=== PATIENT | male | born 1960 | race Caucasian/White ===

== ENCOUNTER 2022-03-05 12:21 | Inpatient (IN) ==
[2022-03-05] MEDS: *HR* LORazepam 1 MG TABLET PO ONE ×2 (12:44→12:48)
[2022-03-05 13:08] LABS: Bilirubin,Urine Negative (Negative); Blood,Urine Large (Negative); Clarity,Urine Clear (Clear); Color,Urine Colorless (Yellow); Glucose,Urine (UA) Normal (Normal); Ketones,Urine Negative (Negative); Leukocyte Esterase,Urine Negative (Negative); Nitrite,Urine Negative (Negative); PH,Urine 6.5 pH Units (5.0-8.0); Protein,Urine Negative (Neg-Trace); Specific Gravity,Urine 1.009 (1.010-1.025); Urobilinogen,Urine Normal (Normal); WBC,Urine 0-3 per hpf (0-3)
[2022-03-05 13:14] LABS: Amphetamine Screen,Urine Negative ng/mL (Cutoff=1000); Barbiturate Screen,Urine Negative ng/mL (Cutoff=200); Benzodiazepines Screen,Urine Negative ng/mL (Cutoff=200); Cannabinoid Screen,Urine Negative ng/mL (Cutoff = 50); Cocaine Screen,Urine Negative ng/mL (Cutoff= 300); Opiate Screen,Urine Negative ng/mL (Cutoff=300); Phencyclidine Screen,Urine Negative ng/mL (Cutoff=25)
[2022-03-05] MEDS ORDERED: *HR* LORazepam 0.5 MG TABLET PO ONE (17:50)
[2022-03-05] MEDS ORDERED: *HR* LORazepam 0.5 MG TABLET ONE (17:55)
[2022-03-05 18:11] LABS: Influenza A PCR Negative (Negative); Influenza B PCR Negative (Negative); Resp. Syncytial Virus PCR Negative (Negative)
[2022-03-05 19:39] LABS: SARS-CoV-2 by PCR (In House) Negative (Negative)
[2022-03-05] MEDS ORDERED: clonazePAM 1 MG TABLET PO PRN (19:46)
[2022-03-05] MEDS ORDERED: *HR* LORazepam 2 MG/ML VIAL IM PRN (19:51)
[2022-03-05] MEDS ORDERED: *HR* LORazepam 1 MG TABLET PO PRN (19:51)
[2022-03-05] MEDS ORDERED: Haloperidol Lactate 5 MG/ML VIAL IM PRN (19:51)
[2022-03-05] MEDS ORDERED: haloperidoL 5 MG TABLET PO PRN (19:51)
[2022-03-05] MEDS ORDERED: Acetaminophen 325 MG TABLET PO PRN (19:51)
[2022-03-05] MEDS ORDERED: clonazePAM 1 MG TABLET ONE (20:04)
[2022-03-05] MEDS: clonazePAM 1 MG TABLET PO SCH (20:07)
[2022-03-05] MEDS: QUEtiapine Fumarate 25 MG TABLET PO PRN (21:32)
[2022-03-05] MEDS: hydrOXYzine pamoate 25 MG CAPSULE PO PRN (21:32)
[2022-03-05] MEDS ORDERED: MOM Conc 10 ML UD.LIQ PO PRN (22:02)
[2022-03-06] MEDS: clonazePAM 1 MG TABLET PO SCH ×4 (08:56→20:06)
[2022-03-06] MEDS: Loratadine 10 MG TABLET PO SCH (08:56)
[2022-03-06] MEDS: Cholecalciferol (D-3) 1,000 UNIT (25MCG) TABLET PO SCH (08:56)
[2022-03-06] MEDS ORDERED: ARIPiprazole 400 MG SUSER.SYR IM SCH (12:00)
[2022-03-06] MEDS: Fluticasone Propionate Nasal 50 MCG/SPRAY BOTTLE NS SCH (12:27)
[2022-03-06] MEDS: QUEtiapine Fumarate 25 MG TABLET PO PRN (20:06)
[2022-03-06] MEDS: hydrOXYzine pamoate 25 MG CAPSULE PO PRN (20:06)
[2022-03-07] MEDS: clonazePAM 1 MG TABLET PO SCH ×3 (08:21→19:54)
[2022-03-07] MEDS: Cholecalciferol (D-3) 1,000 UNIT (25MCG) TABLET PO SCH (08:21)
[2022-03-07] MEDS: Fluticasone Propionate Nasal 50 MCG/SPRAY BOTTLE NS SCH (08:21)
[2022-03-07] MEDS: Loratadine 10 MG TABLET PO SCH (08:21)
[2022-03-07] MEDS: OLANZapine 10 MG TAB.RAPDIS PO SCH (19:54)
[2022-03-08] MEDS: Loratadine 10 MG TABLET PO SCH (08:37)
[2022-03-08] MEDS: clonazePAM 1 MG TABLET PO SCH ×3 (08:37→21:16)
[2022-03-08] MEDS: Cholecalciferol (D-3) 1,000 UNIT (25MCG) TABLET PO SCH (08:37)
[2022-03-08] MEDS: Fluticasone Propionate Nasal 50 MCG/SPRAY BOTTLE NS SCH (08:38)
[2022-03-08 20:06] LABS: Bilirubin,Urine Negative (Negative); Blood,Urine Large (Negative); Clarity,Urine Clear (Clear); Color,Urine Light-Yellow (Yellow); Glucose,Urine (UA) Normal (Normal); Ketones,Urine Negative (Negative); Leukocyte Esterase,Urine Negative (Negative); Nitrite,Urine Negative (Negative); PH,Urine 5.5 pH Units (5.0-8.0); Protein,Urine Negative (Neg-Trace); Specific Gravity,Urine 1.008 (1.010-1.025); Urobilinogen,Urine Normal (Normal)
[2022-03-08] MEDS: OLANZapine 10 MG TAB.RAPDIS PO SCH (21:16)
[2022-03-08] MEDS: QUEtiapine Fumarate 25 MG TABLET PO PRN (21:16)
[2022-03-08] MEDS: hydrOXYzine pamoate 25 MG CAPSULE PO PRN (21:17)
[2022-03-09] MEDS: clonazePAM 1 MG TABLET PO SCH ×3 (09:31→20:45)
[2022-03-09] MEDS: Loratadine 10 MG TABLET PO SCH (09:31)
[2022-03-09] MEDS: Fluticasone Propionate Nasal 50 MCG/SPRAY BOTTLE NS SCH (09:32)
[2022-03-09] MEDS: Cholecalciferol (D-3) 1,000 UNIT (25MCG) TABLET PO SCH (09:32)
[2022-03-09] MEDS: Mag Hydrox/Al Hydrox/Simeth 30 ML UDC PO PRN (20:43)
[2022-03-09] MEDS: OLANZapine 5 MG TAB.RAPDIS PO SCH (20:44)
[2022-03-09] MEDS: hydrOXYzine pamoate 25 MG CAPSULE PO PRN (20:44)
[2022-03-09] MEDS: OLANZapine 10 MG TAB.RAPDIS PO SCH (20:44)
[2022-03-09] MEDS: QUEtiapine Fumarate 25 MG TABLET PO PRN (20:45)
[2022-03-10] MEDS: Cholecalciferol (D-3) 1,000 UNIT (25MCG) TABLET PO SCH (09:41)
[2022-03-10] MEDS: Loratadine 10 MG TABLET PO SCH (09:41)
[2022-03-10] MEDS: clonazePAM 1 MG TABLET PO SCH ×3 (09:41→20:02)
[2022-03-10] MEDS: Fluticasone Propionate Nasal 50 MCG/SPRAY BOTTLE NS SCH (12:59)
[2022-03-10] MEDS: OLANZapine 5 MG TAB.RAPDIS PO SCH (20:02)
[2022-03-10] MEDS: OLANZapine 10 MG TAB.RAPDIS PO SCH (20:02)
[2022-03-10] MEDS: QUEtiapine Fumarate 25 MG TABLET PO PRN (20:02)
[2022-03-10] MEDS: hydrOXYzine pamoate 25 MG CAPSULE PO PRN (20:02)
[2022-03-10] MEDS: Mag Hydrox/Al Hydrox/Simeth 30 ML UDC PO PRN (20:02)
[2022-03-11] MEDS: Loratadine 10 MG TABLET PO SCH (09:24)
[2022-03-11] MEDS: Cholecalciferol (D-3) 1,000 UNIT (25MCG) TABLET PO SCH (09:24)
[2022-03-11] MEDS: Fluticasone Propionate Nasal 50 MCG/SPRAY BOTTLE NS SCH (09:25)
[2022-03-11] MEDS: clonazePAM 1 MG TABLET PO SCH ×3 (09:25→20:48)
[2022-03-11] MEDS: Mag Hydrox/Al Hydrox/Simeth 30 ML UDC PO PRN (20:42)
[2022-03-11] MEDS: OLANZapine 10 MG TAB.RAPDIS PO SCH (20:43)
[2022-03-11] MEDS: QUEtiapine Fumarate 25 MG TABLET PO PRN (20:44)
[2022-03-11] MEDS: hydrOXYzine pamoate 25 MG CAPSULE PO PRN (20:45)
[2022-03-12] MEDS: Cholecalciferol (D-3) 1,000 UNIT (25MCG) TABLET PO SCH (09:20)
[2022-03-12] MEDS: Loratadine 10 MG TABLET PO SCH (09:20)
[2022-03-12] MEDS: clonazePAM 1 MG TABLET PO SCH ×3 (09:21→20:51)
[2022-03-12] MEDS: Fluticasone Propionate Nasal 50 MCG/SPRAY BOTTLE NS SCH (09:23)
[2022-03-12] MEDS: OLANZapine 10 MG TAB.RAPDIS PO SCH (20:51)
[2022-03-12] MEDS: QUEtiapine Fumarate 25 MG TABLET PO PRN (20:53)
[2022-03-12] MEDS: hydrOXYzine pamoate 25 MG CAPSULE PO PRN (20:53)
[2022-03-13] MEDS: Cholecalciferol (D-3) 1,000 UNIT (25MCG) TABLET PO SCH (08:46)
[2022-03-13] MEDS: Loratadine 10 MG TABLET PO SCH (08:46)
[2022-03-13] MEDS: clonazePAM 1 MG TABLET PO SCH ×3 (08:47→21:05)
[2022-03-13] MEDS: Fluticasone Propionate Nasal 50 MCG/SPRAY BOTTLE NS SCH (08:48)
[2022-03-13] MEDS: hydrOXYzine pamoate 25 MG CAPSULE PO PRN (21:04)
[2022-03-13] MEDS: QUEtiapine Fumarate 25 MG TABLET PO PRN (21:04)
[2022-03-13] MEDS: OLANZapine 10 MG TAB.RAPDIS PO SCH (21:05)
[2022-03-14] MEDS: clonazePAM 1 MG TABLET PO SCH ×3 (08:46→20:16)
[2022-03-14] MEDS: Loratadine 10 MG TABLET PO SCH (08:46)
[2022-03-14] MEDS: Cholecalciferol (D-3) 1,000 UNIT (25MCG) TABLET PO SCH (08:46)
[2022-03-14] MEDS: Fluticasone Propionate Nasal 50 MCG/SPRAY BOTTLE NS SCH (10:37)
[2022-03-14] MEDS: OLANZapine 10 MG TAB.RAPDIS PO SCH (20:16)
[2022-03-15] MEDS: Fluticasone Propionate Nasal 50 MCG/SPRAY BOTTLE NS SCH (08:42)
[2022-03-15] MEDS: Cholecalciferol (D-3) 1,000 UNIT (25MCG) TABLET PO SCH (08:42)
[2022-03-15] MEDS: Loratadine 10 MG TABLET PO SCH (08:42)
[2022-03-15] MEDS: clonazePAM 1 MG TABLET PO SCH (08:42)
[2022-03-15 09:56] VITALS: BP 117/76; PULSE 109; TEMP 98; O2SAT 95
== END 2022-03-15 13:10 | disposition home or self-care (01) | DRG 885 ==
LOC: EMEROOARM 12:21 → 1ANU 19:45
PROVIDERS: ADMIT Psychiatry & Neurology Psychiatry; ATTEND Psychiatry & Neurology Psychiatry

== ENCOUNTER 2022-04-24 18:38 | Observation (INO) ==
[2022-04-24] MEDS ORDERED: clonazePAM 1 MG TABLET PO ONE (20:30)
[2022-04-24] MEDS ORDERED: OLANZapine 10 MG TAB.RAPDIS PO ONE (20:32)
[2022-04-24 23:02] LABS: Influenza A PCR Negative (Negative); Influenza B PCR Negative (Negative); Resp. Syncytial Virus PCR Negative (Negative)
[2022-04-24 23:04] LABS: SARS-CoV-2 by PCR (In House) Positive (Negative)
[2022-04-24] MEDS ORDERED: Ondansetron ODT 4 MG TAB.RAPDIS SL PRN (23:51)
[2022-04-24] MEDS ORDERED: Naloxone 0.4 MG/ML INJ IVP PRN (23:51)
[2022-04-24] MEDS ORDERED: Melatonin 3 MG TABLET PO PRN (23:51)
[2022-04-25] MEDS: clonazePAM 1 MG TABLET PO SCH ×4 (01:46→20:07)
[2022-04-25] MEDS: *HR* Enoxaparin 40 MG/0.4 ML SYRINGE SQ SCH (06:08)
[2022-04-25] MEDS: Loratadine 10 MG TABLET PO SCH (10:08)
[2022-04-25 12:06] LABS: Red Blood Count 4.37 M/mcL (4.19-5.50); Red Cell Distribution Width 14.7 % (11.5-14.5)
[2022-04-25 12:08] LABS: Hematocrit 39.6 % (37.5-50.1); Hemoglobin 13.5 g/dL (12.9-16.9); Immature Platelets 3.7 % (1.1-6.1); Mean Corpuscular HGB Conc 34.1 g/dL (31.6-35.5); Mean Corpuscular Hemoglobin 30.9 pg (28.0-33.3); Mean Corpuscular Volume 90.6 fL (83.0-100.0); Mean Platelet Volume 9.9 fL (9.4-12.4); White Blood Count 4.1 K/mcL (4.3-11.1)
[2022-04-25 12:27] LABS: Calcium 9.8 mg/dL (8.6-10.3); Magnesium 1.9 mg/dL (1.6-2.6); Phosphorous 3.8 mg/dL (2.7-4.5)
[2022-04-25] MEDS ORDERED: ARIPiprazole 400 MG SUSER.SYR IM SCH (15:00)
[2022-04-25] MEDS: ARIPiprazole 10 MG TABLET PO SCH (16:02)
[2022-04-25] MEDS: OLANZapine 10 MG TAB.RAPDIS PO SCH (20:07)
[2022-04-26] MEDS: *HR* Enoxaparin 40 MG/0.4 ML SYRINGE SQ SCH (06:03)
[2022-04-26] MEDS: Loratadine 10 MG TABLET PO SCH (07:53)
[2022-04-26] MEDS: ARIPiprazole 10 MG TABLET PO SCH (07:53)
[2022-04-26] MEDS: clonazePAM 1 MG TABLET PO SCH ×3 (07:54→19:43)
[2022-04-26] MEDS: OLANZapine 10 MG TAB.RAPDIS PO SCH (19:43)
[2022-04-27] MEDS: *HR* Enoxaparin 40 MG/0.4 ML SYRINGE SQ SCH (05:13)
[2022-04-27] MEDS: clonazePAM 1 MG TABLET PO SCH ×3 (08:17→21:49)
[2022-04-27] MEDS: ARIPiprazole 10 MG TABLET PO SCH (08:18)
[2022-04-27] MEDS: Loratadine 10 MG TABLET PO SCH (08:18)
[2022-04-27 10:22] LABS: Basophils % 0.2 %; Eosinophils % 0.2 %; Immature Granulocytes % 0.2 % (0-4); Red Cell Distribution Width 14.6 % (11.5-14.5)
[2022-04-27 10:23] LABS: Hematocrit 38.1 % (37.5-50.1); Hemoglobin 12.8 g/dL (12.9-16.9); Immature Platelets 3.6 % (1.1-6.1); Lymphocytes # 0.9 K/mcL (0.6-4.6); Lymphocytes % 21.4 %; Mean Corpuscular HGB Conc 33.6 g/dL (31.6-35.5); Mean Corpuscular Hemoglobin 30.5 pg (28.0-33.3); Mean Corpuscular Volume 90.9 fL (83.0-100.0); Mean Platelet Volume 10.9 fL (9.4-12.4); Monocytes # 0.3 K/mcL (0.0-1.3); Monocytes % 7.3 %; Neutrophils # 2.9 K/mcL (1.6-8.9); Red Blood Count 4.19 M/mcL (4.19-5.50); Segmented Neutrophils % 70.7 %; White Blood Count 4.1 K/mcL (4.3-11.1)
[2022-04-27 10:24] LABS: Platelet Count 78 K/mcL (140-400)
[2022-04-27 10:44] LABS: Albumin/Globulin Ratio 1.5 (1.1-2.2); Bilirubin,Total 0.7 mg/dL (0.3-1.0); Calcium 9.5 mg/dL (8.6-10.3); Globulin 2.6 g/dL (2.4-3.5); Total Protein 6.6 g/dL (6.4-8.9)
[2022-04-27] MEDS: OLANZapine 10 MG TAB.RAPDIS PO SCH (21:49)
[2022-04-28] MEDS: *HR* Enoxaparin 40 MG/0.4 ML SYRINGE SQ SCH (05:29)
[2022-04-28] MEDS: Loratadine 10 MG TABLET PO SCH (08:40)
[2022-04-28] MEDS: ARIPiprazole 10 MG TABLET PO SCH (08:41)
[2022-04-28] MEDS: clonazePAM 1 MG TABLET PO SCH ×3 (08:41→21:32)
[2022-04-28] MEDS: OLANZapine 10 MG TAB.RAPDIS PO SCH (21:32)
[2022-04-29] MEDS: *HR* Enoxaparin 40 MG/0.4 ML SYRINGE SQ SCH (05:31)
[2022-04-29] MEDS: Loratadine 10 MG TABLET PO SCH (08:27)
[2022-04-29] MEDS: ARIPiprazole 10 MG TABLET PO SCH (08:28)
[2022-04-29] MEDS: clonazePAM 1 MG TABLET PO SCH ×3 (08:28→19:14)
[2022-04-29] MEDS: OLANZapine 10 MG TAB.RAPDIS PO SCH (19:15)
[2022-04-30] MEDS ORDERED: *HR* LORazepam 2 MG/ML VIAL IM STA (01:22)
[2022-04-30] MEDS ORDERED: Dexmedetomidine HCl 400 MCG/100 ML MLS IVC SCH (02:30)
[2022-04-30] MEDS ORDERED: Haloperidol Lactate 5 MG/ML VIAL IM ONE (02:32)
[2022-04-30] MEDS ORDERED: *HR* LORazepam 2 MG/ML VIAL IM ONE (02:37)
[2022-04-30] MEDS: *HR* Enoxaparin 40 MG/0.4 ML SYRINGE SQ SCH (06:53)
[2022-04-30] MEDS ORDERED: 0.9 % Sodium Chloride 1,000 ML IVC ONE (08:40)
[2022-04-30 11:18] VITALS: TEMP 97.8; O2SAT 93
[2022-04-30] MEDS ORDERED: Artificial Tears SOLN 15 ML BOTTLE BOTH EYES PRN (12:08)
[2022-04-30] MEDS: ARIPiprazole 10 MG TABLET PO SCH (12:19)
[2022-04-30] MEDS: Loratadine 10 MG TABLET PO SCH (12:19)
[2022-04-30] MEDS: clonazePAM 1 MG TABLET PO SCH ×2 (12:19→16:41)
[2022-04-30 16:20] VITALS: BP 114/81; PULSE 71
[2022-04-30 16:28] LABS: Adenovirus Not Detected (Not Detect); Bordetella Pertussis Not Detected (Not Detect); Chlamydophila pneumoniae Not Detected (Not Detect); Coronavirus 229E Not Detected (Not Detect); Coronavirus HKU1 Not Detected (Not Detect); Coronavirus NL63 Not Detected (Not Detect); Coronavirus OC43 Not Detected (Not Detect); Human Metapneumovirus Not Detected (Not Detect); Human Rhinovirus/Enterovirus Not Detected (Not Detect); Influenza A Subtype 2009 H1 Not Detected (Not Detect); Influenza B Not Detected (Not Detect); Mycoplasma pneumoniae Not Detected (Not Detect); Parainfluenza Virus 1 Not Detected (Not Detect); Parainfluenza Virus 2 Not Detected (Not Detect); Parainfluenza Virus 3 Not Detected (Not Detect); Parainfluenza Virus 4 Not Detected (Not Detect); Respiratory Syncytial Virus Not Detected (Not Detect); SARS-CoV-2 Not Detected (Not Detect)
[2022-04-30] MEDS ORDERED: Flu Vac QV 22-23 (6MOS UP)/PF 0.5 ML SYRINGE IM ONE (17:05)
== END 2022-04-30 17:31 ==
LOC: 3BNU 18:38 → EMEROOARM 18:38 → SUATTDRO 04-25 00:05 → 3BNU 04-25 01:04 → 2NNU 04-30 04:51
PROVIDERS: ADMIT Student in an Organized Health Care Education/Training Program; ATTEND Nurse Practitioner

== ENCOUNTER 2022-04-30 17:37 | Inpatient (IN) ==
[2022-04-30] MEDS ORDERED: traZODone 50 MG TABLET PO PRN (17:44)
[2022-04-30] MEDS ORDERED: Haloperidol Lactate 5 MG/ML VIAL IM PRN (17:44)
[2022-04-30] MEDS ORDERED: Mag Hydrox/Al Hydrox/Simeth 30 ML UDC PO PRN (17:44)
[2022-04-30] MEDS ORDERED: Acetaminophen 325 MG TABLET PO PRN (17:44)
[2022-04-30] MEDS ORDERED: *HR* LORazepam 2 MG/ML VIAL IM PRN (17:44)
[2022-04-30] MEDS ORDERED: MOM Conc 10 ML UD.LIQ PO PRN (17:44)
[2022-04-30] MEDS ORDERED: Artificial Tears SOLN 15 ML BOTTLE BOTH EYES PRN (18:01)
[2022-04-30] MEDS ORDERED: Melatonin 3 MG TABLET PO PRN (18:03)
[2022-04-30] MEDS: OLANZapine 10 MG TAB.RAPDIS PO SCH (20:49)
[2022-04-30] MEDS: clonazePAM 1 MG TABLET PO SCH (20:49)
[2022-04-30] MEDS: hydrOXYzine pamoate 25 MG CAPSULE PO PRN (20:49)
[2022-04-30] MEDS: *HR* LORazepam 1 MG TABLET PO PRN (21:58)
[2022-04-30] MEDS: haloperidoL 5 MG TABLET PO PRN (21:58)
[2022-05-01] MEDS: haloperidoL 5 MG TABLET PO PRN ×2 (04:18→21:29)
[2022-05-01] MEDS: *HR* LORazepam 1 MG TABLET PO PRN ×2 (04:18→21:28)
[2022-05-01] MEDS: Loratadine 10 MG TABLET PO SCH (08:04)
[2022-05-01] MEDS: ARIPiprazole 10 MG TABLET PO SCH (08:04)
[2022-05-01] MEDS: OLANZapine 5 MG TAB.RAPDIS PO SCH (08:05)
[2022-05-01] MEDS: clonazePAM 1 MG TABLET PO SCH ×3 (08:05→20:44)
[2022-05-01] MEDS ORDERED: chlorproMAZINE 25 MG TABLET PO PRN (09:18)
[2022-05-01] MEDS ORDERED: Melatonin 3 MG TABLET PO PRN (14:07)
[2022-05-01] MEDS: OLANZapine 10 MG TAB.RAPDIS PO SCH (20:44)
[2022-05-01] MEDS: chlorproMAZINE 25 MG TABLET PO PRN (20:45)
[2022-05-02] MEDS: haloperidoL 5 MG TABLET PO PRN (01:56)
[2022-05-02] MEDS: *HR* LORazepam 1 MG TABLET PO PRN (01:56)
[2022-05-02] MEDS: hydrOXYzine pamoate 25 MG CAPSULE PO PRN (04:18)
[2022-05-02] MEDS: chlorproMAZINE 25 MG TABLET PO PRN (04:18)
[2022-05-02] MEDS: ARIPiprazole 10 MG TABLET PO SCH (08:45)
[2022-05-02] MEDS: OLANZapine 5 MG TAB.RAPDIS PO SCH (08:47)
[2022-05-02] MEDS: clonazePAM 1 MG TABLET PO SCH ×2 (08:47→14:01)
[2022-05-02] MEDS: Loratadine 10 MG TABLET PO SCH (08:47)
[2022-05-02 13:40] VITALS: BP 127/88; PULSE 104; TEMP 97.9; O2SAT 94
[2022-05-03 14:10] LABS: ABG Base Excess 0 mEq/L (-2 to 3); ABG HCO3 27 mEq/L (21-27); ABG Oxygen Saturation 99 % (95-98); ABG PCO2 49 mmHg (35-45); ABG PH 7.35 pH Units (7.32-7.45); ABG PO2 158 mmHg (85-104); ABG TCO2 28 mEq/L (20-26); Blood Gas Modality ASSIST CONTROL; Blood Gas VT 500 cc
[2022-05-04 08:18] LABS: ABG Base Excess 1 mEq/L (-2 to 3); ABG HCO3 28 mEq/L (21-27); ABG Oxygen Saturation 96 % (95-98); ABG PCO2 55 mmHg (35-45); ABG PH 7.31 pH Units (7.32-7.45); ABG PO2 94 mmHg (85-104); ABG TCO2 30 mEq/L (20-26); Blood Gas Modality ASSIST CONTROL; Blood Gas VT 550 cc
[2022-05-25] MEDS ORDERED: Patient Taking Own Medication 1 EACH IM SCH (09:00)
== END 2022-05-02 14:06 | disposition short-term general hospital (02) | DRG 885 ==
LOC: 1ANU 17:37
PROVIDERS: ADMIT Psychiatry & Neurology Psychiatry; ATTEND Psychiatry & Neurology Psychiatry

== ENCOUNTER 2022-05-02 11:58 | Inpatient (IN) ==
[2022-05-02] MEDS: Dexmedetomidine HCl 400 MCG/100 ML MLS IVC SCH ×2 (15:17→20:46)
[2022-05-02] MEDS ORDERED: Naloxone 0.4 MG/ML INJ IVP PRN (15:56)
[2022-05-02] MEDS ORDERED: *HR* LORazepam 1 MG TABLET PO PRN (16:07)
[2022-05-02] MEDS ORDERED: Haloperidol Lactate 5 MG/ML VIAL IM PRN (16:07)
[2022-05-02] MEDS ORDERED: *HR* LORazepam 2 MG/ML VIAL IVP PRN (16:08)
[2022-05-02] MEDS ORDERED: Melatonin 3 MG TABLET PO PRN (16:09)
[2022-05-02] MEDS ORDERED: chlorproMAZINE 25 MG TABLET PO PRN (16:10)
[2022-05-02] MEDS ORDERED: haloperidoL 5 MG TABLET PO PRN (16:11)
[2022-05-02] MEDS ORDERED: *HR* LORazepam 2 MG/ML VIAL IM ONE (16:19)
[2022-05-02] MEDS: Haloperidol Lactate 5 MG/ML VIAL IM PRN (16:32)
[2022-05-02] MEDS: clonazePAM 1 MG TABLET PO SCH (21:55)
[2022-05-02] MEDS: OLANZapine 5 MG TAB.RAPDIS PO SCH (21:55)
[2022-05-03] MEDS: 0.9 % Sodium Chloride 1,000 ML IVC ONE ×2 (00:14→04:02)
[2022-05-03 03:16] LABS: Eosinophils % 0.7 %; Hemoglobin 11.9 g/dL (12.9-16.9); Mean Corpuscular Volume 90.5 fL (83.0-100.0); Red Cell Distribution Width 14.6 % (11.5-14.5)
[2022-05-03 03:18] LABS: Hematocrit 35.2 % (37.5-50.1); Immature Granulocytes % 0.3 % (0-4); Immature Platelets 2.8 % (1.1-6.1); Lymphocytes # 0.7 K/mcL (0.6-4.6); Lymphocytes % 22.6 %; Mean Corpuscular HGB Conc 33.8 g/dL (31.6-35.5); Mean Corpuscular Hemoglobin 30.6 pg (28.0-33.3); Mean Platelet Volume 10.6 fL (9.4-12.4); Monocytes # 0.3 K/mcL (0.0-1.3); Monocytes % 11.4 %; Red Blood Count 3.89 M/mcL (4.19-5.50)
[2022-05-03 03:29] LABS: Platelet Count 72 K/mcL (140-400)
[2022-05-03 03:38] LABS: Calcium 9.4 mg/dL (8.6-10.3); Magnesium 2.2 mg/dL (1.6-2.6); Potassium 4.1 mEq/L (3.5-5.1)
[2022-05-03] MEDS ORDERED: 0.9 % Sodium Chloride 1,000 ML ONE (03:55)
[2022-05-03] MEDS: Haloperidol Lactate 5 MG/ML VIAL IM PRN (07:29)
[2022-05-03] MEDS: ARIPiprazole 10 MG TABLET PO SCH (10:32)
[2022-05-03] MEDS: clonazePAM 1 MG TABLET PO SCH ×3 (10:32→19:19)
[2022-05-03] MEDS: OLANZapine 5 MG TAB.RAPDIS PO SCH ×2 (10:32→19:19)
[2022-05-03] MEDS: 0.9 % Sodium Chloride 1,000 ML IVC SCH (10:53)
[2022-05-03] MEDS ORDERED: Artificial Tears SOLN 15 ML BOTTLE BOTH EYES PRN (12:47)
[2022-05-03] MEDS: FentaNYL (PF) 1,000 MCG/100 ML IV.SOLN IVC SCH ×2 (13:30→19:13)
[2022-05-03] MEDS: Midazolam HCl 50 MG/50 ML IV.SOLN IVC SCH ×3 (13:30→22:11)
[2022-05-03] MEDS: Pantoprazole 40 MG VIAL IVP SCH (15:47)
[2022-05-03] MEDS: Artificial Tears SOLN 15 ML BOTTLE BOTH EYES SCH ×3 (15:48→22:57)
[2022-05-03] MEDS ORDERED: *HR* Atropine Sulfate 1 MG/10 ML SYRINGE ONE (15:52)
[2022-05-03] MEDS: Norepinephrine 4 MG/254 ML IV.SOLN IVC SCH (19:00)
[2022-05-03] MEDS: Chlorhexidine Rinse 15 ML MOUTHWASH MM SCH (20:06)
[2022-05-03 20:29] LABS: VBG Ionized Calcium 1.15 mmol/L (1.15-1.35)
[2022-05-03 20:35] LABS: Hematocrit 36.1 % (37.5-50.1)
[2022-05-03 20:37] LABS: Hemoglobin 12.2 g/dL (12.9-16.9); Immature Platelets 3.5 % (1.1-6.1); Mean Corpuscular HGB Conc 33.8 g/dL (31.6-35.5); Mean Corpuscular Volume 91.9 fL (83.0-100.0); Mean Platelet Volume 10.4 fL (9.4-12.4); Red Blood Count 3.93 M/mcL (4.19-5.50); Red Cell Distribution Width 14.6 % (11.5-14.5); White Blood Count 4.8 K/mcL (4.3-11.1)
[2022-05-03 20:45] LABS: Calcium 8.5 mg/dL (8.6-10.3); Potassium 3.6 mEq/L (3.5-5.1)
[2022-05-04] MEDS: 0.9 % Sodium Chloride 1,000 ML IVC SCH (00:13)
[2022-05-04] MEDS: FentaNYL (PF) 1,000 MCG/100 ML IV.SOLN IVC SCH ×5 (00:40→22:23)
[2022-05-04] MEDS: Midazolam HCl 50 MG/50 ML IV.SOLN IVC SCH ×4 (02:45→19:47)
[2022-05-04] MEDS: Artificial Tears SOLN 15 ML BOTTLE BOTH EYES SCH ×6 (03:18→23:03)
[2022-05-04 03:42] LABS: Basophils % 0.2 %; Immature Granulocytes % 0.2 % (0-4)
[2022-05-04 03:44] LABS: Eosinophils % 0.6 %; Hemoglobin 12.5 g/dL (12.9-16.9); Immature Platelets 3.3 % (1.1-6.1); Lymphocytes % 20.2 %; Mean Corpuscular HGB Conc 33.8 g/dL (31.6-35.5); Mean Corpuscular Hemoglobin 31.2 pg (28.0-33.3); Mean Corpuscular Volume 92.3 fL (83.0-100.0); Mean Platelet Volume 9.8 fL (9.4-12.4); Monocytes # 0.4 K/mcL (0.0-1.3); Monocytes % 8.8 %; Neutrophils # 3.3 K/mcL (1.6-8.9); Red Blood Count 4.01 M/mcL (4.19-5.50); White Blood Count 4.7 K/mcL (4.3-11.1)
[2022-05-04 03:54] LABS: Platelet Count 76 K/mcL (140-400)
[2022-05-04 04:00] LABS: ABG Base Excess 1 mEq/L (-2 to 3); ABG HCO3 29 mEq/L (21-27); ABG Oxygen Saturation 97 % (95-98); ABG PCO2 59 mmHg (35-45); ABG PH 7.29 pH Units (7.32-7.45); ABG PO2 99 mmHg (85-104); ABG TCO2 31 mEq/L (20-26); Blood Gas Modality ASSIST CONTROL; Blood Gas VT 500 cc
[2022-05-04 04:01] LABS: Albumin 3.8 g/dL (3.5-5.7); Albumin/Globulin Ratio 1.4 (1.1-2.2); Bilirubin,Direct 0.2 mg/dL (0.0-0.2); Bilirubin,Indirect 0.7 mg/dL (0.0-1.0); Bilirubin,Total 0.9 mg/dL (0.3-1.0); Calcium 8.7 mg/dL (8.6-10.3); Globulin 2.7 g/dL (2.4-3.5); Magnesium 2.1 mg/dL (1.6-2.6); Potassium 3.7 mEq/L (3.5-5.1); Total Protein 6.5 g/dL (6.4-8.9)
[2022-05-04] MEDS ORDERED: Potassium Chloride Elixir 20 MEQ/15 ML UDC PO ONE (04:22)
[2022-05-04] MEDS: Norepinephrine 4 MG/254 ML IV.SOLN IVC SCH (07:58)
[2022-05-04] MEDS: ARIPiprazole 10 MG TABLET PO SCH (08:00)
[2022-05-04] MEDS: clonazePAM 1 MG TABLET PO SCH ×3 (08:00→19:22)
[2022-05-04] MEDS: Chlorhexidine Rinse 15 ML MOUTHWASH MM SCH ×2 (08:00→19:22)
[2022-05-04] MEDS: Pantoprazole 40 MG VIAL IVP SCH (08:00)
[2022-05-04] MEDS: OLANZapine 5 MG TAB.RAPDIS PO SCH ×2 (08:08→19:22)
[2022-05-04] MEDS: Dexmedetomidine HCl 400 MCG/100 ML MLS IVC SCH (10:52)
[2022-05-04] MEDS: *HR* Heparin 5,000 UNIT/ML VIAL SQ SCH (22:02)
[2022-05-05] MEDS: Midazolam HCl 50 MG/50 ML IV.SOLN IVC SCH ×3 (02:02→20:08)
[2022-05-05] MEDS: Norepinephrine 4 MG/254 ML IV.SOLN IVC SCH ×2 (02:05→19:00)
[2022-05-05] MEDS: Artificial Tears SOLN 15 ML BOTTLE BOTH EYES SCH ×5 (03:25→19:49)
[2022-05-05] MEDS: Dexmedetomidine HCl 400 MCG/100 ML MLS IVC SCH (03:34)
[2022-05-05] MEDS: FentaNYL (PF) 1,000 MCG/100 ML IV.SOLN IVC SCH ×3 (03:48→16:26)
[2022-05-05 04:26] LABS: ABG Base Excess 0 mEq/L (-2 to 3); ABG HCO3 28 mEq/L (21-27); ABG Oxygen Saturation 96 % (95-98); ABG PCO2 56 mmHg (35-45); ABG PO2 90 mmHg (85-104); ABG TCO2 29 mEq/L (20-26); Blood Gas Modality ASSIST CONTROL; Blood Gas VT 550 cc
[2022-05-05 04:37] LABS: Basophils % 0.3 %; Eosinophils # 0.1 K/mcL (0.0-0.6); Eosinophils % 2.3 %; Hematocrit 37.1 % (37.5-50.1); Hemoglobin 12.3 g/dL (12.9-16.9); Immature Granulocytes % 0.3 % (0-4); Immature Platelets 3.2 % (1.1-6.1); Lymphocytes % 17.1 %; Mean Corpuscular HGB Conc 33.2 g/dL (31.6-35.5); Mean Corpuscular Hemoglobin 30.8 pg (28.0-33.3); Mean Corpuscular Volume 92.8 fL (83.0-100.0); Mean Platelet Volume 10.6 fL (9.4-12.4); Monocytes # 0.7 K/mcL (0.0-1.3); Monocytes % 10.8 %; Neutrophils # 4.2 K/mcL (1.6-8.9); Red Cell Distribution Width 15.3 % (11.5-14.5); Segmented Neutrophils % 69.2 %
[2022-05-05 04:41] LABS: Platelet Count 84 K/mcL (140-400)
[2022-05-05 05:04] LABS: Calcium 8.8 mg/dL (8.6-10.3); Magnesium 2.1 mg/dL (1.6-2.6); Potassium 3.9 mEq/L (3.5-5.1)
[2022-05-05] MEDS: *HR* Heparin 5,000 UNIT/ML VIAL SQ SCH ×3 (06:03→23:10)
[2022-05-05] MEDS ORDERED: *HR* Dextrose 50 % in Water (Syg) 50 ML SYRINGE IVP PRN (06:11)
[2022-05-05] MEDS ORDERED: Dextrose Gel 15 GM/37.5 ML TUBE PO PRN ×2 (06:11)
[2022-05-05] MEDS ORDERED: D5% in Water 1,000 ML IVC PRN (06:11)
[2022-05-05] MEDS: clonazePAM 1 MG TABLET PO SCH ×3 (07:51→19:48)
[2022-05-05] MEDS: Chlorhexidine Rinse 15 ML MOUTHWASH MM SCH ×2 (07:51→19:49)
[2022-05-05] MEDS: Pantoprazole 40 MG VIAL IVP SCH (07:51)
[2022-05-05] MEDS: OLANZapine 5 MG TAB.RAPDIS PO SCH ×2 (07:52→19:48)
[2022-05-05] MEDS: ARIPiprazole 10 MG TABLET PO SCH (07:52)
[2022-05-05] MEDS: Insulin LISPRO 300 UNITS/3 ML VIAL SUBQ SCH ×2 (11:52→18:11)
[2022-05-06] MEDS: FentaNYL (PF) 1,000 MCG/100 ML IV.SOLN IVC SCH ×4 (01:10→19:30)
[2022-05-06] MEDS: Artificial Tears SOLN 15 ML BOTTLE BOTH EYES SCH ×6 (01:30→19:31)
[2022-05-06] MEDS: Insulin LISPRO 300 UNITS/3 ML VIAL SUBQ SCH ×4 (02:34→18:59)
[2022-05-06 04:39] LABS: ABG Base Excess 1 mEq/L (-2 to 3); ABG HCO3 27 mEq/L (21-27); ABG Oxygen Saturation 90 % (95-98); ABG PCO2 47 mmHg (35-45); ABG PH 7.36 pH Units (7.32-7.45); ABG PO2 61 mmHg (85-104); ABG TCO2 28 mEq/L (20-26); Blood Gas Modality AF; Blood Gas VT 580 cc
[2022-05-06] MEDS: *HR* Heparin 5,000 UNIT/ML VIAL SQ SCH ×3 (05:51→21:36)
[2022-05-06 06:39] LABS: Basophils % 0.2 %; Hemoglobin 12.5 g/dL (12.9-16.9); Immature Granulocytes % 0.3 % (0-4)
[2022-05-06 06:41] LABS: Hematocrit 37.2 % (37.5-50.1); Immature Platelets 4.1 % (1.1-6.1); Lymphocytes # 0.5 K/mcL (0.6-4.6); Lymphocytes % 7.9 %; Mean Corpuscular HGB Conc 33.6 g/dL (31.6-35.5); Mean Corpuscular Hemoglobin 30.8 pg (28.0-33.3); Mean Corpuscular Volume 91.6 fL (83.0-100.0); Monocytes # 0.6 K/mcL (0.0-1.3); Neutrophils # 5.2 K/mcL (1.6-8.9); Red Blood Count 4.06 M/mcL (4.19-5.50); Red Cell Distribution Width 14.8 % (11.5-14.5); Segmented Neutrophils % 82.6 %; White Blood Count 6.3 K/mcL (4.3-11.1)
[2022-05-06 06:44] LABS: Platelet Count 64 K/mcL (140-400)
[2022-05-06 07:04] LABS: Platelet Estimate Decreased (Normal)
[2022-05-06 07:05] LABS: Anisocytosis 1+ (Not Present)
[2022-05-06 07:10] LABS: BUN/Creatinine Ratio 12 (6-26); Blood Urea Nitrogen 11 mg/dL (8-23); Calcium 8.9 mg/dL (8.6-10.3); Carbon Dioxide 28 mEq/L (23-29); Chloride 104 mEq/L (98-107); Glucose 114 mg/dL (70-105); Magnesium 1.8 mg/dL (1.6-2.6); Osmolality,Calculated 286 (280-300); Potassium 3.9 mEq/L (3.5-5.1); Sodium 138 mEq/L (136-145)
[2022-05-06] MEDS: Vancomycin 1,250 MG/262.5 ML IV.SOLN IVPB SCH ×2 (07:44→18:51)
[2022-05-06] MEDS: Cefepime HCl 2,000 MG in 0.9 % Sodium Chloride 10 ML IVP SCH ×2 (08:17→15:39)
[2022-05-06] MEDS: Pantoprazole 40 MG VIAL IVP SCH (08:17)
[2022-05-06] MEDS: clonazePAM 1 MG TABLET PO SCH ×3 (08:17→19:32)
[2022-05-06] MEDS: Chlorhexidine Rinse 15 ML MOUTHWASH MM SCH ×2 (08:17→19:31)
[2022-05-06] MEDS: OLANZapine 5 MG TAB.RAPDIS PO SCH ×2 (08:18→19:31)
[2022-05-06] MEDS: ARIPiprazole 10 MG TABLET PO SCH (08:18)
[2022-05-06] MEDS: metroNIDAZOLE 500 MG TABLET PO SCH ×3 (08:18→19:32)
[2022-05-06] MEDS: Midazolam HCl 50 MG/50 ML IV.SOLN IVC SCH (08:19)
[2022-05-06 09:12] LABS: Adenovirus Not Detected (Not Detect); Bordetella Pertussis Not Detected (Not Detect); Chlamydophila pneumoniae Not Detected (Not Detect); Coronavirus 229E Not Detected (Not Detect); Coronavirus HKU1 Not Detected (Not Detect); Coronavirus NL63 Not Detected (Not Detect); Coronavirus OC43 Not Detected (Not Detect); Human Metapneumovirus Not Detected (Not Detect); Human Rhinovirus/Enterovirus Not Detected (Not Detect); Influenza A Subtype 2009 H1 Not Detected (Not Detect); Influenza B Not Detected (Not Detect); Mycoplasma pneumoniae Not Detected (Not Detect); Parainfluenza Virus 1 Not Detected (Not Detect); Parainfluenza Virus 2 Not Detected (Not Detect); Parainfluenza Virus 3 Not Detected (Not Detect); Parainfluenza Virus 4 Not Detected (Not Detect); Respiratory Syncytial Virus Not Detected (Not Detect); SARS-CoV-2 Not Detected (Not Detect)
[2022-05-06] MEDS ORDERED: Acetaminophen 325 MG TABLET PO PRN (11:43)
[2022-05-06] MEDS: Norepinephrine 4 MG/254 ML IV.SOLN IVC SCH (14:16)
[2022-05-06 19:30] VITALS: TEMP 99.6
[2022-05-06 21:36] VITALS: BP 99/61; O2SAT 93
[2022-05-06 21:52] VITALS: PULSE 80
== END 2022-05-06 23:59 | disposition other institution (70) | DRG 885 ==
LOC: 2NNU → SUATTDRO 14:34 → ICNU 05-03 13:25
PROVIDERS: ADMIT Internal Medicine; ATTEND Pediatrics